=== PATIENT | female | born 1965 | race Caucasian/White ===

== ENCOUNTER 2019-06-24 16:28 | Emergency (ER) | payer MEDICARE, MEDICAID ==
[~2019-06-24] VITALS: Ht 160 cm; Wt 61.0 kg
[~2019-06-24 16:28] MED LIST: ACET-461 PO; AMPH12.52; AMPH25CA3 PO; ATEN25TA PO; AZIT500T PO; CHOL10003; CIPR500T78 PO; CLIN-81 PO; CLIN300C3 PO; CLON0.5T13; CLON0.5T2; CLON0.5T3 PO; CLON1TAB36; CYCL10TA9 PO; DULO30CA; DULO60CA6; ENAL10TA PO; FLUO20CA42 PO; FNT50TD TD; HYDR-2890; HYDR-32; HYDR-3720; HYDR-3720 PO; IBUP-30 PO; LYRICA; NAPR-243 PO; NF-ADDXR30 PO; OMG1KC; OXYC-12 PO; OXYC-465 PO; OXYC1TAB16 PO; PRD20T PO; PREG100C22; SEAWEED; SULF1TAB35 PO; TOPI50TA2 PO; TPR100T; [UNRECOGNIZED DRUG - REMARK]; [UNRECOGNIZED DRUG - REMARK]
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
--- NOTE | 2019-06-24 17:13 | Diagnostic Imaging Report ---
INDICATION: Bilateral shoulder pain. EXAMINATION: Three views of the right shoulder. FINDINGS: Glenohumeral joint is in good alignment. Articulating surfaces are smooth. There is a sclerotic bone island along the inferior aspect of the humeral head, measuring just over 1 cm. There is hypertrophic change noted along the greater tuberosity. AC joint shows good alignment with mild hypertrophic change. IMPRESSION: Hypertrophic changes along the greater tuberosity which would be suggestive of chronic rotator cuff disease. Mild degenerative change of the AC joint. Dictated by: Dictated on workstation # [id number]
--- NOTE | 2019-06-24 17:14 | Diagnostic Imaging Report ---
INDICATION: Left shoulder pain. EXAMINATION: Three views of the left shoulder were obtained. FINDINGS: Glenohumeral joint is in good alignment. Articulating surfaces are smooth. There are no hypertrophic changes. No fracture. AC joint appears normal. No soft tissue calcifications about the shoulder. IMPRESSION: Normal left shoulder. Dictated by: Dictated on workstation # [id number]
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
[2019-06-24] MEDS ORDERED: HYDR-4226 PO (17:46)
[2019-06-24 17:58] VITALS: BP 148/98
== END 2019-06-24 17:58 | disposition home or self-care (01) ==
LOC: EDUNIT# 16:28 → ER 16:30
DX: M54.5 Low back pain (principal); I10 Essential (primary) hypertension; G43.909 Migraine, unspecified, not intractable, without status migrainosus; G40.909 Epilepsy, unspecified, not intractable, without status epilepticus; G62.9 Polyneuropathy, unspecified; M79.7 Fibromyalgia; F41.9 Anxiety disorder, unspecified; F32.9 Major depressive disorder, single episode, unspecified; F17.200 Nicotine dependence, unspecified, uncomplicated; Z90.710 Acquired absence of both cervix and uterus; Z88.0 Allergy status to penicillin; Z82.49 Family history of ischemic heart disease and other diseases of the circulatory system; Z80.0 Family history of malignant neoplasm of digestive organs; V47.6XXA Car passenger injured in collision with fixed or stationary object in traffic accident, initial encounter
CPT/HCPCS: 72125; 72131; 73030

== ENCOUNTER 2019-08-27 16:50 | Emergency (ER) | payer MEDICARE, MEDICAID ==
[~2019-08-27] VITALS: Ht 160 cm; Wt 65.3 kg
[~2019-08-27 16:50] MED LIST changes: +HYDR-4226 PO
--- NOTE | 2019-08-27 17:43 | ED EENT ---
History of Present Illness General Chief Complaint: Ear Problems Stated Complaint: LEFT EAR PAIN Nursing Triage Note: C/O left ear pain with drainage , unable to hear from left ear Source: patient Exam Limitations: no limitations History of Present Illness Date Seen by Provider: Aug 27, 2019 Time Seen by Provider: 17:41 Initial Comments Left earache, drainage for 4 days. Lots of pain with this. No fever no chills no rhinorrhea no cough. States that her family has told her that she is talking quieter than usual, when she talks she feels as though she is talking very loudly. Timing/Duration: abrupt Severity: moderate Location: ear (L) Associated Symptoms: denies symptoms Allergies and Home Medications Allergies Coded Allergies: Penicillins (Verified Allergy, Unknown, HIVES, 12/14/14) Home Medications Hydrocodone/Acetaminophen 1 Each Tablet, 1 TAB PO Q4-6HR Prescribed by: GEOFFREY DENIS on 06/24/19 1746 Patient Home Medication List Home Medication List Reviewed: Yes Review of Systems Review of Systems Constitutional: see HPI Eyes: No Symptoms Reported Ears: See HPI, Pain Nose: no symptoms reported Mouth: no symptoms reported Throat: no symptoms reported Respiratory: no symptoms reported Cardiovascular: no symptoms reported Musculoskeletal: no symptoms reported Past Ryyqtmy-Kuqrmr-Dgaxnq Hx Patient Social History Alcohol Use: Denies Use Recreational Drug Use: Yes Drug of Choice: THC Smoking Status: Current Everyday Smoker 2nd Hand Smoke Exposure: No Recent Foreign Travel: No Contact w/Someone Who Travel: No Recent Infectious Disease Expo: No Recent Hopitalizations: No Physical Abuse: No Sexual Abuse: No Mistreated: No Fear: No Immunizations Up To Date Tetanus Booster (TDap): Less than 5yrs PED Vaccines UTD: No Seasonal Allergies Seasonal Allergies: No Past Medical History Surgeries: Yes (CARPLE TUNNEL, D&C, KNEE SURGERY BOTH KNEES) Hysterectomy, Orthopedic Respiratory: Yes Chronic Bronchitis Cardiac: Yes Hypertension Neurological: Yes Headaches /Migraines, Neuropathy, Seizure Disorder 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 Disorders: Yes (D&C) 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 Sexually Transmitted Disease: No HIV/AIDS: No Gastrointestinal: No Musculoskeletal: Yes (CHRONIC PAIN, KNEE SX) Fibromyalgia, Chronic Back Pain Endocrine: No HEENT: Yes Chronic Ear Infection Loss of Vision: Denies Hearing Impairment: Denies Cancer: No Psychosocial: Yes Sleep Difficulties, Anxiety, Depression Integumentary: No Blood Disorders: No Adverse Reaction/Blood Tranf: No Family Medical History Cardiovascular disease 19 MOTHER Cataracts 19 MOTHER Colon cancer 19 MOTHER Diabetes mellitus 19 FATHER 19 MOTHER Hypercholesterolemia 19 MOTHER Hypertension 19 MOTHER Kidney disease 19 MOTHER Myocardial infarction 19 MOTHER Neoplasm 19 MOTHER Thyroid disease 19 MOTHER No Family History of: AIDS Abdominal aortic aneurysm Wesley's disease Alcoholism Alzheimer's disease Aphasia Arthritis Asthma Cancer of mouth Completed stroke Congenital disease Congenital heart disease Coronary thrombosis Cystic fibrosis Deafness or hearing loss Dementia Drug abuse Dysphasia Fibrocystic disease of breast Gastroenteritis Glaucoma Headache disorder Infertility Not obtainable due to adoption Osteoporosis Parkinson's disease Prostate cancer Psychosocial problem Respiratory disorder Seizure disorder Severe allergy Tuberculosis Visual disorder Physical Exam Vital Signs Vital Signs - First Documented 08/27/19 17:29 Temp 36.9 Pulse 119 Resp 16 B/P (MAP) 136/80 (98) Pulse Ox 97 Height, Weight, BMI Height: 5'3" Weight: 140lbs. oz. 63.060514rr; 25.00 BMI Method:Stated General Appearance: WD/WN, no apparent distress Eyes: bilateral eye normal inspection, bilateral eye PERRL, bilateral eye EOMI Ears: bilateral ear auricle normal, bilateral ear TM normal Nose: normal inspection Mouth/Throat: normal mouth inspection, pharynx normal Neck: non-tender, full range of motion Respiratory: no respiratory distress, no accessory muscle use Gastrointestinal: normal bowel sounds, non tender Neurologic/Psychiatric: alert, normal mood/affect, oriented x 3 Skin: normal color, warm/dry I'm unable to view the tympanic membrane or the more proximal ear canal, this is due to swelling of the outer ear canal and tenderness upon exam. She'll need follow-up with Dr. Coyle after a few days of antibiotics to reduce the swelling for better exam. Progress/Results/Core Measures Results/Orders My Orders Orders - GEOFFREY DENIS APRN Levofloxacin Tablet (Levaquin Tablet) (08/27/19 17:45) Vital Signs/I&O 08/27/19 17:29 Temp 36.9 Pulse 119 Resp 16 B/P (MAP) 136/80 (98) Pulse Ox 97 Blood Pressure Mean: 98 POS Departure Impression Primary Impression: Otitis externa Qualified Codes: H60.502 - Unspecified acute noninfective otitis externa, left ear Disposition: 01 HOME, SELF-CARE Condition: Stable Departure-Patient Inst. Decision time for Depature: 17:50 Referrals: RONALDO COYLE MD NO,LOCAL PHYSICIAN (PCP) Primary Care Physician Patient Instructions: Outer Ear Infection (DC) Add. Discharge Instructions: 1. Tylenol and ibuprofen for pain control 2. Oral and topical eardrops antibiotics as directed. All discharge instructions reviewed with patient and/or family. Voiced understanding. Scripts Ofloxacin (Floxin (Non-Formulary)) 5 Ml Drops 3 DROPS RIGHT EAR BID for 5 Days, #1 DROPS 0 Refills Prov: GEOFFREY DENIS APRN 08/27/19 Levofloxacin (Levaquin) 500 Mg Tablet 500 MG PO DAILY, #5 TAB Prov: GEOFFREY DENIS APRN 08/27/19 GEOFFREY DENIS APRN Aug 27, 2019 17:43 POS
[2019-08-27] MEDS ORDERED: LEVOFLOXACIN 500 MG TAB (LEVAQUIN) PO ONE (17:45)
[2019-08-27] MEDS ORDERED: OFLO5DRO7 RIGHT EAR (17:52)
[2019-08-27] MEDS ORDERED: LEVO500T2 PO (17:52)
[2019-08-27 18:06] VITALS: BP 130/63
== END 2019-08-27 18:06 | disposition home or self-care (01) ==
LOC: EDUNIT# 16:50 → ER 16:50
DX: H60.92 Unspecified otitis externa, left ear (principal); J42 Unspecified chronic bronchitis; I10 Essential (primary) hypertension; G43.909 Migraine, unspecified, not intractable, without status migrainosus; G40.909 Epilepsy, unspecified, not intractable, without status epilepticus; G62.9 Polyneuropathy, unspecified; M79.7 Fibromyalgia; F41.9 Anxiety disorder, unspecified; F32.9 Major depressive disorder, single episode, unspecified; F17.200 Nicotine dependence, unspecified, uncomplicated; Z88.0 Allergy status to penicillin; Z90.710 Acquired absence of both cervix and uterus; Z82.49 Family history of ischemic heart disease and other diseases of the circulatory system; Z80.0 Family history of malignant neoplasm of digestive organs
CPT/HCPCS: 99283

== ENCOUNTER 2020-04-21 00:54 | Emergency (ER) | payer MEDICARE, MEDICAID ==
[~2020-04-21] VITALS: Ht 160 cm; Wt 68.0 kg
[~2020-04-21 00:54] MED LIST changes: -CLON0.5T13; +CLON0.5T4; +LEVO500T2 PO; +OFLO5DRO33 RIGHT EAR
[2020-04-21] MEDS ORDERED: MELO7.5T46 (01:17)
--- NOTE | 2020-04-21 01:31 | NUR ---
pt refused to let amilcar rn attempt 2nd iv start. 20ga iv started in lac with ultrasound [place] x1 attempt.
--- NOTE | 2020-04-21 01:55 | NUR ---
pt requesting pain medications, informed erp awaiting orders.
[2020-04-21] MEDS ORDERED: fentaNYL INJECTION 100 MCG/2 ML AMP IVP ONE (02:00)
[2020-04-21 02:06] LABS: BASOPHILS # (AUTO) 0.1 10^3/uL (0.0-0.1); BASOPHILS % (AUTO) 1 % (0-10); EOSINOPHILS # (AUTO) 0.1 10^3/uL (0.0-0.3); EOSINOPHILS % (AUTO) 1 % (0-10); HEMATOCRIT 44 % (35-52); HEMOGLOBIN 14.9 G/DL (11.5-16.0); LYMPHOCYTES # (AUTO) 2.5 X 10^3 (1.0-4.0); LYMPHOCYTES % (AUTO) 28 % (12-44); MEAN CORPUSCULAR HEMOGLOBIN 30 PG (25-34); MEAN CORPUSCULAR HGB CONC 34 G/DL (32-36); MEAN CORPUSCULAR VOLUME 90 FL (80-99); MEAN PLATELET VOLUME 10.1 FL (7.4-10.4); MONOCYTES # (AUTO) 0.6 X 10^3 (0.0-1.0); MONOCYTES % (AUTO) 7 % (0-12); NEUTROPHILS # (AUTO) 5.5 X 10^3 (1.8-7.8); NEUTROPHILS % (AUTO) 62 % (42-75); PLATELET COUNT 330 10^3/uL (130-400); RED CELL DISTRIBUTION WIDTH 13.3 % (10.0-14.5); WHITE BLOOD COUNT 8.8 10^3/uL (4.3-11.0)
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
[2020-04-21 02:13] LABS: ALBUMIN 4.3 GM/DL (3.2-4.5); CHLORIDE 104 MMOL/L (98-107); POTASSIUM 3.6 MMOL/L (3.6-5.0); SODIUM 142 MMOL/L (135-145)
[2020-04-21 02:15] LABS: GLUCOSE 88 MG/DL (70-105); TOTAL PROTEIN 7.7 GM/DL (6.4-8.2)
[2020-04-21 02:16] LABS: CARBON DIOXIDE 27 MMOL/L (21-32)
[2020-04-21 02:17] LABS: BILIRUBIN,TOTAL 0.3 MG/DL (0.1-1.0)
[2020-04-21 02:19] LABS: ALKALINE PHOSPHATASE 99 U/L (40-136); CREATININE SERUM 1.07 MG/DL (0.60-1.30); GFR ESTIMATED 54
[2020-04-21 02:20] LABS: BUN/CREATININE RATIO 16
[2020-04-21 02:22] LABS: ALANINE AMINOTRANSFERASE 14 U/L (0-55); MAGNESIUM 2.3 MG/DL (1.6-2.4)
[2020-04-21] MEDS ORDERED: KETOROLAC 30 MG/ML VIAL IVP ONE (02:30)
[2020-04-21] MEDS ORDERED: LIDOCAINE 1% INJ 20 ML 20 ML VIAL ONE (03:14)
[2020-04-21] MEDS ORDERED: LIDOCAINE 1% INJ 20 ML 20 ML VIAL INJ ONE (03:15)
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
[2020-04-21 03:56] VITALS: BP 102/68
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
== END 2020-04-21 03:53 | disposition home or self-care (01) ==
LOC: EDUNIT# 00:54 → ER 00:58
DX: S06.0X0A Concussion without loss of consciousness, initial encounter (principal); S80.02XA Contusion of left knee, initial encounter; S93.105A Unspecified dislocation of left toe(s), initial encounter; G43.909 Migraine, unspecified, not intractable, without status migrainosus; G89.29 Other chronic pain; M54.9 Dorsalgia, unspecified; R40.2142 Coma scale, eyes open, spontaneous, at arrival to emergency department; R40.2252 Coma scale, best verbal response, oriented, at arrival to emergency department; R40.2362 Coma scale, best motor response, obeys commands, at arrival to emergency department; F17.210 Nicotine dependence, cigarettes, uncomplicated; Z88.0 Allergy status to penicillin; Z82.49 Family history of ischemic heart disease and other diseases of the circulatory system; Z80.0 Family history of malignant neoplasm of digestive organs; V17.4XXA Pedal cycle driver injured in collision with fixed or stationary object in traffic accident, initial encounter
CPT/HCPCS: 70450; 71045; 73030; 73562; 73630; 80053; 83735; 84484; 85025; 93005; 93041; 99284; G0480; 36415; 80320

== ENCOUNTER 2021-11-28 11:37 | Emergency (ER) | payer MEDICARE, MEDICAID ==
[~2021-11-28] VITALS: Ht 160 cm; Wt 63.5 kg
[~2021-11-28 11:37] MED LIST changes: +MELO7.5T46
[2021-11-28] MEDS ORDERED: TETRACAINE 0.5% OPHTH SOLN 4 ML BTL (SINGLE DOSE ONLY) ONE (11:58)
[2021-11-28] MEDS ORDERED: FLUORESCEIN (FLUOR-I-STRIPS) 1 MG STRP ONE (11:58)
[2021-11-28] MEDS ORDERED: BSS 15 ML ONE (11:58)
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
--- NOTE | 2021-11-28 12:43 | Diagnostic Imaging Report ---
PROCEDURE: CT head and CT cervical spine without contrast. TECHNIQUE: Multiple contiguous axial images were obtained through the brain and cervical spine without the use of intravenous contrast. Sagittal and coronal reformations through the cervical spine were then performed. Auto Exposure Controls were utilized during the CT exam to meet ALARA standards for radiation dose reduction. INDICATION: Head pain as well as neck pain. COMPARISON: Correlation is made with prior head CT from 04/21/2020. CT HEAD: The ventricles and sulci are within normal limits. No sulcal effacement or midline shift is identified. No acute intra-axial or extra-axial hemorrhage is detected. Cisterns are patent. Visualized paranasal sinuses are clear. IMPRESSION: No acute intracranial process is detected. CT CERVICAL SPINE: FINDINGS: There is some straightening of the normal cervical lordotic curvature. Minimal anterolisthesis of C3 on C4 is noted. There is some degenerative disc disease at the C5-C6 level with disc space narrowing and marginal spurring. There is facet arthropathy on the left side at the C3-C4 level. No fractures are identified. Prevertebral tissues are within normal limits. Odontoid is intact. IMPRESSION: Cervical spondylosis. No acute bony abnormality is detected. Dictated by: Dictated on workstation # [id number]
[2021-11-28 13:15] LABS: BASOPHILS # (AUTO) 0.1 10^3/uL (0.0-0.1); BASOPHILS % (AUTO) 1 % (0-10); EOSINOPHILS # (AUTO) 0.3 10^3/uL (0.0-0.3); EOSINOPHILS % (AUTO) 4 % (0-10); HEMATOCRIT 44 % (35-52); HEMOGLOBIN 14.7 g/dL (11.5-16.0); LYMPHOCYTES # (AUTO) 2.5 10^3/uL (1.0-4.0); LYMPHOCYTES % (AUTO) 32 % (12-44); MEAN CORPUSCULAR HEMOGLOBIN 31 pg (25-34); MEAN CORPUSCULAR HGB CONC 33 g/dL (32-36); MEAN CORPUSCULAR VOLUME 92 fL (80-99); MEAN PLATELET VOLUME 10.3 fL (9.0-12.2); MONOCYTES # (AUTO) 0.6 10^3/uL (0.0-1.0); MONOCYTES % (AUTO) 8 % (0-12); NEUTROPHILS # (AUTO) 4.3 10^3/uL (1.8-7.8); NEUTROPHILS % (AUTO) 55 % (42-75); PLATELET COUNT 375 10^3/uL (130-400); WHITE BLOOD COUNT 7.8 10^3/uL (4.3-11.0)
[2021-11-28 13:26] LABS: POTASSIUM 3.7 MMOL/L (3.6-5.0)
[2021-11-28 13:27] LABS: CALCIUM 9.1 MG/DL (8.5-10.1)
[2021-11-28 13:28] LABS: TOTAL PROTEIN 7.2 GM/DL (6.4-8.2)
[2021-11-28 13:30] LABS: BILIRUBIN,TOTAL 0.3 MG/DL (0.1-1.0)
[2021-11-28 13:32] LABS: CREATININE SERUM 0.75 MG/DL (0.60-1.30)
[2021-11-28 13:45] VITALS: BP 134/84
== END 2021-11-28 13:45 | disposition home or self-care (01) ==
LOC: EDUNIT# 11:37 → ER 11:39
DX: R51.9 Headache, unspecified (principal); H11.32 Conjunctival hemorrhage, left eye; F17.210 Nicotine dependence, cigarettes, uncomplicated
CPT/HCPCS: 36415; 70450; 72125; 80053; 85025

== ENCOUNTER 2023-02-26 10:20 | Emergency (ER) | payer MEDICARE, MEDICAID ==
[~2023-02-26] VITALS: Ht 160 cm; Wt 65.7 kg
[2023-02-26 10:45] LABS: CLARITY,URINE CLEAR; COLOR,URINE YELLOW; GLUCOSE, URINE (UA) NEGATIVE (NEGATIVE); KETONES,URINE NEGATIVE (NEGATIVE); LEUKOCYTE ESTERASE ,URINE NEGATIVE (NEGATIVE); NITRITE,URINE NEGATIVE (NEGATIVE); PH,URINE 5.5 (5-9); PROTEIN,URINE 2+ (NEGATIVE)
[2023-02-26 11:02] LABS: RBC,URINE RARE /HPF; WBC,URINE RARE /HPF
[2023-02-26 11:03] LABS: BACTERIA,URINE MODERATE /HPF
--- NOTE | 2023-02-26 11:06 | ED Abdominal Pain ---
General Chief Complaint: Abdominal/GI Problems Stated Complaint: ABD PAIN Nursing Triage Note: sudden onset anterior/posterior left sided shooting pain. started about 20 minutes ago Source of Information: Patient Exam Limitations: No Limitations History of Present Illness Date Seen by Provider: February 26, 2023 Time Seen by Provider: 10:48 Initial Comments 57-year-old female presents emerged from today for left lower abdominal and left flank pain. Symptoms started 20 minutes prior to arrival and is sharp and stabbing without radiation. There are intermittent but severe when present. No changes in bowel or bladder habits. No nausea or vomiting. No fevers or chills. She has had a partial hysterectomy is having no vaginal symptoms no longer has menstrual cycles. All other systems reviewed and negative except documented per HPI. Voice recognition software was used to help create this chart Allergies and Home Medications Allergies Coded Allergies: Penicillins (Verified Allergy, Unknown, HIVES, 12/14/14) Patient Home Medication List Home Medication List Reviewed: Yes Cephalexin (Cephalexin) 500 Mg Tablet, 500 MG PO BID Prescribed by: LENNY RAUSCH MD on 02/26/23 1247 Hydrocodone/Acetaminophen (Hydrocodone/Acetaminophen 5 MG/325 MG TAB) 1 Each Tablet, 1 TAB PO Q4-6HR Prescribed by: GEOFFREY DENIS on 06/24/19 1746 Hydrocodone/Acetaminophen (Hydrocodone-Acetamin 5-325 mg) 5 Mg-325 Mg Tablet, 1 TAB PO Q4H PRN for PAIN-MODERATE (5-7) Prescribed by: LENNY RAUSCH MD on 02/26/23 1245 Ketorolac Tromethamine (Ketorolac Tromethamine) 10 Mg Tablet, 10 MG PO TID Prescribed by: LENNY RAUSCH MD on 02/26/23 1245 Levofloxacin (Levaquin) 500 Mg Tablet, 500 MG PO DAILY Prescribed by: GEOFFREY DENIS on 08/27/19 175 Meloxicam (Meloxicam) 7.5 Mg Tablet, (Reported) Entered as Reported by: TOAN DICK on 04/21/20 0117 Ofloxacin (Floxin (Non-Formulary)) 5 Ml Drops, 3 DROPS RIGHT EAR BID Prescribed by: GEOFFREY EDNIS on 08/27/19 175 Ondansetron (Ondansetron Odt) 8 Mg Tab.rapdis, 8 MG SL Q6H PRN for SOFI SEA/VOMITING Prescribed by: LENNY RAUSCH MD on 02/26/23 1245 Tamsulosin HCl (Flomax) 0.4 Mg Cap, 0.4 MG PO DAILY Prescribed by: LENNY RAUSCH MD on 02/26/23 1245 Review of Systems Review of Systems Constitutional: see HPI Past Yhowvvx-Pjfema-Ywwhee Hx Patient Social History Tobacco Use?: No Use of E-Cig and/or Vaping dev: No Substance use?: No Alcohol Use?: No Pt feels they are or have been: No Immunizations Up To Date Tetanus Booster (TDap): Less than 5yrs PED Vaccines UTD: No Seasonal Allergies Seasonal Allergies: No Past Medical History Surgery/Hospitalization HX: ovarian ca, fibromyalgia etopic , partial hyster, tonsils Surgeries: Yes (CARPLE TUNNEL, D&C, KNEE SURGERY BOTH KNEES) Hysterectomy, Orthopedic Respiratory: Yes Chronic Bronchitis Cardiac: Yes Hypertension Neurological: Yes Headaches /Migraines, Neuropathy, Seizure Disorder 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 Disorders: Yes (D&C) Female 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 Sexually Transmitted Disease: No HIV/AIDS: No Genitourinary: No Gastrointestinal: No Musculoskeletal: Yes (CHRONIC PAIN, KNEE SX) Fibromyalgia, Chronic Back Pain Endocrine: No HEENT: Yes Chronic Ear Infection Loss of Vision: Denies Hearing Impairment: Denies Cancer: No Psychosocial: Yes Sleep Difficulties, Anxiety, Depression Integumentary: No Blood Disorders: No Adverse Reaction/Blood Tranf: No Family Medical History Cardiovascular disease 19 MOTHER Cataracts 19 MOTHER Colon cancer 19 MOTHER Diabetes mellitus 19 FATHER 19 MOTHER Hypercholesterolemia 19 MOTHER Hypertension 19 MOTHER Kidney disease 19 MOTHER Myocardial infarction 19 MOTHER Neoplasm 19 MOTHER Thyroid disease 19 MOTHER No Family History of: AIDS Abdominal aortic aneurysm [place]'s disease Alcoholism Alzheimer's disease Aphasia Arthritis Asthma Cancer of mouth Completed stroke Congenital disease Congenital heart disease Coronary thrombosis Cystic fibrosis Deafness or hearing loss Dementia Drug abuse Dysphasia Fibrocystic disease of breast Gastroenteritis Glaucoma Headache disorder Infertility Not obtainable due to adoption Osteoporosis Parkinson's disease Prostate cancer Psychosocial problem Respiratory disorder Seizure disorder Severe allergy Tuberculosis Visual disorder Physical Exam Vital Signs Vital Signs - First Documented 02/26/23 10:26 Temp 35.6 Pulse 70 Resp 18 B/P (MAP) 134/91 (105) Pulse Ox 98 O2 Delivery Room Air Capillary Refill : Less Than 3 Seconds Height/Weight/BMI Height: 5'3" Weight: 140lbs. oz. 63.583919ja; 25.00 BMI Method:Stated General Appearance: WD/WN, mild distress HEENT: normal ENT inspection, pharynx normal Neck: full range of motion, supple Respiratory: chest non-tender, lungs clear, normal breath sounds, no respiratory distress, no accessory muscle use Cardiovascular: regular rate, rhythm, no murmur Gastrointestinal: normal bowel sounds, soft, no organomegaly, tenderness (Left lower quadrant, left flank) Extremities: non-tender, normal inspection Back: CVA tenderness (L) Skin: normal color, warm/dry Progress/Results/Core Measures Results/Orders Lab Results Laboratory Tests Test 02/26/23 10:35 02/26/23 11:09 Range/Units Urine Color YELLOW Urine Clarity CLEAR Urine pH 5.5 5-9 Urine Specific [place] >=1.030 1.016-1.022 Urine Protein 2+ H NEGATIVE Urine Glucose (UA) NEGATIVE NEGATIVE Urine Ketones NEGATIVE NEGATIVE Urine Nitrite NEGATIVE NEGATIVE Urine Bilirubin 1+ H NEGATIVE Urine Urobilinogen 1.0 < = 1.0 MG/DL Urine Leukocyte Esterase NEGATIVE NEGATIVE Urine RBC (Auto) NEGATIVE NEGATIVE Urine RBC RARE /HPF Urine WBC RARE /HPF Urine Squamous Epithelial Cells 10-25 H /HPF Urine Crystals NONE /LPF Urine Bacteria MODERATE H /HPF Urine Casts NONE /LPF Urine Mucus LARGE H /LPF Urine Culture Indicated YES White Blood Count 6.6 4.3-11.0 10^3/uL Red Blood Count 4.73 3.80-5.11 10^6/uL Hemoglobin 14.5 11.5-16.0 g/dL Hematocrit 43 35-52 % Mean Corpuscular Volume 92 80-99 fL Mean Corpuscular Hemoglobin 31 25-34 pg Mean Corpuscular Hemoglobin Concent 33 32-36 g/dL Red Cell Distribution Width 13.2 10.0-14.5 % Platelet Count 365 130-400 10^3/uL Mean Platelet Volume 10.2 9.0-12.2 fL Immature Granulocyte % (Auto) 0 % Neutrophils (%) (Auto) 62 42-75 % Lymphocytes (%) (Auto) 27 12-44 % Monocytes (%) (Auto) 7 0-12 % Eosinophils (%) (Auto) 2 0-10 % Basophils (%) (Auto) 1 0-10 % Neutrophils # (Auto) 4.1 1.8-7.8 10^3/uL Lymphocytes # (Auto) 1.8 1.0-4.0 10^3/uL Monocytes # (Auto) 0.5 0.0-1.0 10^3/uL Eosinophils # (Auto) 0.1 0.0-0.3 10^3/uL Basophils # (Auto) 0.1 0.0-0.1 10^3/uL Immature Granulocyte # (Auto) 0.0 0.0-0.1 10^3/uL Sodium Level 138 135-145 MMOL/L Potassium Level 3.6 3.6-5.0 MMOL/L Chloride Level 106 98-107 MMOL/L Carbon Dioxide Level 23 21-32 MMOL/L Anion Gap 9 5-14 MMOL/L Blood Urea Nitrogen 18 7-18 MG/DL Creatinine 0.93 0.60-1.30 MG/DL Estimat Glomerular Filtration Rate 73 BUN/Creatinine Ratio 19 Glucose Level 172 H 70-105 MG/DL Calcium Level 9.0 8.5-10.1 MG/DL Corrected Calcium 9.2 8.5-10.1 MG/DL Total Bilirubin 0.3 0.1-1.0 MG/DL Aspartate Amino Transf (AST/SGOT) 22 5-34 U/L Alanine Aminotransferase (ALT/SGPT) 14 0-55 U/L Alkaline Phosphatase 81 40-136 U/L Total Protein 6.6 6.4-8.2 GM/DL Albumin 3.8 3.2-4.5 GM/DL Lipase 20 8-78 U/L My Orders Orders - LENNY RAUSCH DO Cbc With Automated Diff (02/26/23 10:37) Comprehensive Metabolic Panel (02/26/23 10:37) Lipase (02/26/23 10:37) Ct Abdomen/Pelvis Wo (02/26/23 10:37) Ua Culture If Indicated (02/26/23 10:37) Urine Culture (02/26/23 10:35) Vital Signs/I&O 02/26/23 02/26/23 10:26 12:55 Temp 35.6 36.0 Pulse 70 61 Resp 18 18 B/P (MAP) 134/91 (105) 152/93 Pulse Ox 98 100 O2 Delivery Room Air Room Air Blood Pressure Mean: 105 Departure Communication (Admissions) Patient is hemodynamically stable. She does have some bacteria in her urine but no other stigmata of UTI. Given that she has a kidney stone we will be conservative and treat her with Keflex. She is given IV morphine here in the emergency department with improvement in her pain. She is pain-free at this time. She will be discharged with p.o. hydrocodone, Toradol, Flomax, Zofran as well as antibiotics. Given strict return precautions. Impression Primary Impression: Ureterolithiasis Disposition: HOME, SELF-CARE Condition: Stable Departure-Patient Inst. Referrals: COSTA FRANCIS MD (PCP/Family) Primary Care Physician Patient Instructions: Kidney stones in adults Add. Discharge Instructions: Please take the pain medication as needed as prescribed. This includes hydr ocodone and ketorolac. Hydrocodone is a narcotic medicine and may cause constipation. I recommend you take stool softeners while taking it. It can also cause drowsiness so do not drive or make important decisions while you are taking it. Ketorolac is an anti-inflammatory medications you should take it with food to avoid upsetting your stomach. You should also avoid other anti- inflammatory medicine such as Motrin ibuprofen or Aleve while taking it. Take the ondansetron, Zofran, as needed for nausea by dissolving it under your tongue. Flomax will help to expel the kidney anterior bladder. Take it daily until your pain subsides. Take the antibiotics as prescribed until they are gone. Increase your fluids at home. Return to the emergency department for any severe pain is not controlled by pain medications or if your symptoms change in any way concerning to you. All discharge instructions reviewed with patient and/or family. Voiced understanding. Scripts Cephalexin (Cephalexin) 500 Mg Tablet 500 MG PO BID for 7 Days, #14 TAB Prov: SHALOMLENNY DO 02/26/23 Tamsulosin HCl (Flomax) 0.4 Mg Cap 0.4 MG PO DAILY for 5 Days, #5 CAP Prov: SHALOMLENNY DO 02/26/23 Ondansetron (Ondansetron Odt) 8 Mg Tab.rapdis 8 MG SL Q6H PRN for NAUSEA/VOMITING for 3 Days, #12 TAB Prov: SHALOMLENNY DO 02/26/23 Ketorolac Tromethamine (Ketorolac Tromethamine) 10 Mg Tablet 10 MG PO TID for Pain for 3 Days, #9 TAB Prov: LENNY RAUSCH DO 02/26/23 Hydrocodone/Acetaminophen (Hydrocodone-Acetamin 5-325 mg) 5 Mg-325 Mg Tablet 1 TAB PO Q4H PRN for PAIN-MODERATE (5-7) for 3 Days, #12 TAB Prov: LENNY RAUSCH DO 02/26/23 LENNY RAUSCH DO February 26, 2023 11:06
[2023-02-26 11:12] LABS: BILIRUBIN,URINE 1+ (NEGATIVE)
[2023-02-26 11:15] LABS: BASOPHILS # (AUTO) 0.1 10^3/uL (0.0-0.1); BASOPHILS % (AUTO) 1 % (0-10); EOSINOPHILS # (AUTO) 0.1 10^3/uL (0.0-0.3); EOSINOPHILS % (AUTO) 2 % (0-10); HEMATOCRIT 43 % (35-52); HEMOGLOBIN 14.5 g/dL (11.5-16.0); LYMPHOCYTES # (AUTO) 1.8 10^3/uL (1.0-4.0); LYMPHOCYTES % (AUTO) 27 % (12-44); MEAN CORPUSCULAR HEMOGLOBIN 31 pg (25-34); MEAN CORPUSCULAR HGB CONC 33 g/dL (32-36); MEAN CORPUSCULAR VOLUME 92 fL (80-99); MEAN PLATELET VOLUME 10.2 fL (9.0-12.2); MONOCYTES # (AUTO) 0.5 10^3/uL (0.0-1.0); MONOCYTES % (AUTO) 7 % (0-12); NEUTROPHILS # (AUTO) 4.1 10^3/uL (1.8-7.8); NEUTROPHILS % (AUTO) 62 % (42-75); PLATELET COUNT 365 10^3/uL (130-400); WHITE BLOOD COUNT 6.6 10^3/uL (4.3-11.0)
[2023-02-26 11:39] LABS: ALBUMIN 3.8 GM/DL (3.2-4.5); BILIRUBIN,TOTAL 0.3 MG/DL (0.1-1.0); CREATININE SERUM 0.93 MG/DL (0.60-1.30); POTASSIUM 3.6 MMOL/L (3.6-5.0); TOTAL PROTEIN 6.6 GM/DL (6.4-8.2)
--- NOTE | 2023-02-26 12:16 | Diagnostic Imaging Report ---
CLINICAL INDICATION: Patient with left flank pain started today. Patient has history of partial hysterectomy. EXAM: Axial CT scan of the abdomen and pelvis performed without IV contrast. Sagittal and coronal reformatted images are created. Auto Exposure Controls were utilized during the CT exam to meet ALARA standards for radiation dose reduction. COMPARISON: CT scan of the chest, abdomen, and pelvis without contrast dated 04/22/2013. FINDINGS: There is minimal atelectasis involving the posterior aspects of both lungs. There is lower lumbar spine facet arthropathy. There are degenerative spurs involving the lumbar spine. The liver, spleen, pancreas, gallbladder, and adrenal glands show no significant abnormality. There is interval development of a 3 mm calcification in the expected region of the left UVJ. There is no hydronephrosis or periureteral or perinephric fat stranding. There are no other urinary tract stones seen. Phleboliths are seen in the pelvis. Uterus is surgically absent. There is no pelvic mass seen. The appendix is unremarkable. There is no significant stool load. There is no intestinal obstruction. There is no intra-abdominal free air or free fluid. Extra-abdominal and extrapelvic soft tissue structures are unremarkable. IMPRESSION: 1: There is interval development of a 3 mm calcification in the expected region of the left UVJ concerning for urinary tract stone, especially given patient's symptoms. There is no periureteral and perinephric fat stranding. There is no hydronephrosis. There are no other urinary tract stones seen. 2: The remainder of this exam shows no other concern for acute abnormality. Dictated by: Dictated on workstation # [id number]
[2023-02-26] MEDS ORDERED: KETO10TA PO (12:45)
[2023-02-26] MEDS ORDERED: TMSL.4C PO (12:45)
[2023-02-26] MEDS ORDERED: ACHD5005 PO ×2 (12:45→16:34)
[2023-02-26] MEDS ORDERED: ONDA8TAB13 SL (12:45)
[2023-02-26] MEDS ORDERED: CEPH500T PO (12:47)
[2023-02-26 12:55] VITALS: BP 152/93
== END 2023-02-26 12:57 | disposition home or self-care (01) ==
LOC: EDUNIT# 10:20 → ER 10:22
DX: N20.1 Calculus of ureter (principal); Z90.711 Acquired absence of uterus with remaining cervical stump; Z88.0 Allergy status to penicillin
CPT/HCPCS: 36415; 74176; 80053; 81000; 83690; 85025; 87088

== ENCOUNTER 2023-03-13 18:51 | Emergency (ER) | payer MEDICARE, MEDICAID ==
[~2023-03-13 18:51] MED LIST changes: +ACHD5005 PO; +CEPH500T PO; +KETO10TA PO; +ONDA8TAB13 SL; +TMSL.4C PO
== END 2023-03-13 19:11 | disposition left against medical advice (07) ==
LOC: EDUNIT# 18:51 → ER 18:53
DX: R11.0 Nausea (principal)